=== PATIENT | female | born 1970 | race Caucasian/White ===

== ENCOUNTER 2016-11-07 10:40 | Emergency (ER) | payer OTHER ==
--- NOTE | 2016-11-07 11:04 | ER Document Report ---
ED Medical Screen (RME) - General Stated Complaint: TORSO PAIN Time seen by provider: 11:02 Mode of Arrival: Ambulatory Information source: Patient Notes: 46 yo female presets to ed for torso pain with shortness of breath for 2 days ago . TRAVEL OUTSIDE OF THE U[place] IN LAST 30 DAYS: No - HPI Onset: Other - Tuesdday Onset/Duration: Gradual Quality of pain: Achy Severity: Moderate Pain Level: 2 Associated Symptoms: Body/muscle aches, Shortness of breath Exacerbated by: Denies Relieved by: Denies Similar symptoms previously: No Recently seen / treated by doctor: No - Related Data Smoking: Non-smoker Frequency of alcohol use: Occasional Drug Abuse: None Allergies/Adverse Reactions: griseofulvin, microsize [From Grifulvin V] Allergy (Severe, Verified 03/02/12 08 :38) latex [Latex] Allergy (Verified 02/12/16 12:23) Past Medical History - Past Medical History Cardiac Medical History: Reports: Hx Hypercholesterolemia, Hx Hypertension Pulmonary Medical History: Reports: Hx Sleep Apnea - NONE SINCE 2005 Neurological Medical History: Denies: Hx Seizures Endocrine Medical History: Reports: Hx Diabetes Mellitus Type 2 Musculoskeltal Medical History: Comment Only Hx Arthritis - ? RIGHT KNEE Psychiatric Medical History: Reports: Hx Depression Past Surgical History: Reports: Hx Abdominal Surgery - bowel resection, gastric bypass, Hx Bowel Surgery, Hx Section, Hx Gastric Bypass Surgery, Hx Herniorrhaphy, Hx Pituitary Surgery. Denies: Hx Pacemaker - Immunizations Hx Diphtheria, Pertussis, Tetanus Vaccination: Yes Physical Exam - Vital signs Vitals: Temp Pulse Resp BP Pulse Ox 98.0 F 67 18 130/88 H 99 11/07/16 10:59 11/07/16 10:59 11/07/16 10:59 11/07/16 10:59 11/07/16 10:59 Course - Vital Signs Vital signs: Temp Pulse Resp BP Pulse Ox 98.0 F 67 18 130/88 H 99 11/07/16 10:59 11/07/16 10:59 11/07/16 10:59 11/07/16 10:59 11/07/16 10:59
[2016-11-07 11:34] LABS: ABSOLUTE EOSINOPHILS # (AUTO) 0.2 10^3/uL (0.0-0.6); ABSOLUTE LYMPHOCYTES (AUTO) 1.3 10^3/uL (0.5-4.7); ABSOLUTE MONOCYTES (AUTO) 0.6 10^3/uL (0.1-1.4); ABSOLUTE NEUT (AUTO) 6.1 10^3/uL (1.7-8.2); BASOPHILS % (AUTO) 0.5 % (0-2); EOSINOPHILS % (AUTO) 2.5 % (0-6); HEMATOCRIT 36.8 % (36.0-47.0); HEMOGLOBIN 12.2 g/dL (12.0-15.5); HGB HCT DIFFERENCE -0.2; LYMPHOCYTES % (AUTO) 15.6 % (13-45); MEAN CORPUSCULAR HEMOGLOBIN 25.8 pg (27.0-33.4); MEAN CORPUSCULAR HGB CONC 33.1 g/dL (32.0-36.0); MEAN CORPUSCULAR VOLUME 78 fl (80-97); RED BLOOD COUNT 4.72 10^6/uL (3.72-5.28); RED CELL DISTRIBUTION WIDTH 17.5 % (11.5-14.0); SEGMENTED NEUTROPHILS % (AUTO) 74.4 % (42-78); WHITE BLOOD COUNT 8.3 10^3/uL (4.0-10.5)
[2016-11-07 11:40] LABS: APPEARANCE,URINE SLIGHTLY-CLOUDY; BILIRUBIN,URINE NEGATIVE (NEGATIVE); GLUCOSE, URINE NEGATIVE (NEGATIVE); KETONES,URINE NEGATIVE (NEGATIVE); LEUKOCYTE ESTERASE,URINE MODERATE (NEGATIVE); NITRITE,URINE NEGATIVE (NEGATIVE); PROTEIN,URINE NEGATIVE (NEGATIVE); URINE SPECIFIC GRAVITY 1.026; UROBILINOGEN,URINE NEGATIVE mg/dL (<2.0)
[2016-11-07 11:58] LABS: ALANINE AMINOTRANSFERASE 26 U/L (9-52); ALBUMIN 4.2 g/dL (3.5-5.0); ALKALINE PHOSPHATASE 70 U/L (38-126); ANION GAP 10 (5-19); ASPARTATE AMINO TRANSFERASE 12 U/L (14-36); BILIRUBIN,TOTAL 0.6 mg/dL (0.2-1.3); BLOOD UREA NITROGEN 21 mg/dL (7-20); CALCIUM 9.1 mg/dL (8.4-10.2); CARBON DIOXIDE 29 mmol/L (22-30); CHLORIDE 99 mmol/L (98-107); GLUCOSE 110 mg/dL (75-110); LIPASE 102.6 U/L (23-300); POTASSIUM 4.1 mmol/L (3.6-5.0); SODIUM 138.3 mmol/L (137-145)
[2016-11-07] MEDS ORDERED: NORMAL SALINE 1000 ML 1,000 ML IV ONE (13:08)
--- NOTE | 2016-11-07 13:11 | ER Document Report ---
ED GI/ - General Chief Complaint: Abdominal Pain Stated Complaint: TORSO PAIN Mode of Arrival: Ambulatory Information source: Patient Notes: Patient presents complaining of upper abdominal pain that wraps around to her back for the past 3 days. Patient states pain is dull and achy in nature. Patient denies any fever, nausea, or vomiting. Patient does report occasional dizziness. Patient denies any cough or cold symptoms. Patient reports a previous history of gastric bypass. Patient states she's had similar symptoms to this in the past when she had a volvulus. TRAVEL OUTSIDE OF THE [place] IN LAST 30 DAYS: No - HPI Patient complains to provider of: Abdominal pain Onset: Other - 3 days Timing/Duration: Persistent Quality of pain: Achy, Dull Pain Level: 4 Location: Epigastric, LUQ, RUQ, Left flank, Right flank Vaginal bleeding (Compared to normal period): None Associated symptoms: Other - Occasional pressure with voiding. denies: Chest pain, Diarrhea, Dysuria, Fever, Loss of appetite, Nausea, Urinary hesitancy, Urinary frequency, Urinary retention, Vaginal discharge, Vomiting Exacerbated by: Denies Relieved by: Denies Similar symptoms previously: Yes - with previous volvulus Recently seen / treated by doctor: No - Related Data Allergies/Adverse Reactions: griseofulvin, microsize [From Grifulvin V] Allergy (Severe, Verified 11/07/16 12 :58) latex [Latex] Allergy (Verified 11/07/16 12:58) Past Medical History - General Information source: Patient Last Menstrual Period: 11/05/2016 - Social History Smoking Status: Never Smoker Frequency of alcohol use: Occasional Drug Abuse: None Occupation: call center Lives with: Family Family History: Hypertension. denies: CAD Patient has suicidal ideation: No Patient has homicidal ideation: No - Past Medical History Cardiac Medical History: Reports: Hx Hypercholesterolemia, Hx Hypertension Pulmonary Medical History: Reports: Hx Sleep Apnea - NONE SINCE 2005 Neurological Medical History: Denies: Hx Seizures Endocrine Medical History: Reports: Hx Diabetes Mellitus Type 2 - >10yr ago GI Medical History: Reports: Hx Gastroesophageal Reflux Disease Musculoskeltal Medical History: Comment Only Hx Arthritis - ? RIGHT KNEE Psychiatric Medical History: Reports: Hx Depression Past Surgical History: Reports: Hx Abdominal Surgery - bowel resection, gastric bypass, Hx Bowel Surgery, Hx Section, Hx Gastric Bypass Surgery, Hx Herniorrhaphy, Hx Pituitary Surgery. Denies: Hx Pacemaker - Immunizations Hx Diphtheria, Pertussis, Tetanus Vaccination: Yes Review of Systems - Review of Systems Constitutional: No symptoms reported. denies: Fever EENT: No symptoms reported Cardiovascular: No symptoms reported. denies: Chest pain Respiratory: No symptoms reported. denies: Cough, Short of breath Gastrointestinal: Abdominal pain. denies: Diarrhea, Nausea, Vomiting, Constipation, Poor appetite Genitourinary: Other - Pressure with voiding. denies: Dysuria, Frequency, Flank pain Female Genitourinary: No symptoms reported. denies: Vaginal discharge, Vaginal bleeding Musculoskeletal: Back pain Skin: No symptoms reported Hematologic/Lymphatic: No symptoms reported Neurological/Psychological: No symptoms reported Physical Exam - Vital signs Vitals: Temp Pulse Resp BP Pulse Ox 98.0 F 67 18 130/88 H 99 11/07/16 10:59 11/07/16 10:59 11/07/16 10:59 11/07/16 10:59 11/07/16 10:59 - General General appearance: Appears well, Alert Notes: Appears older than stated age - Respiratory Respiratory status: No respiratory distress Chest status: Nontender Breath sounds: Normal. No: Rales, Rhonchi, Stridor, Wheezing Chest palpation: Normal - Cardiovascular Rhythm: Regular Heart sounds: S1 appreciated, S2 appreciated Murmur: No - Abdominal Inspection: Obese Distension: No distension Bowel sounds: Normal Tenderness: Tender - Right upper, left upper, epigastric tenderness - Back Back: No: CVA tenderness Notes: Tenderness across bilateral thoracolumbar area - Extremities General upper extremity: Normal inspection, Normal strength General lower extremity: Normal inspection, Normal strength - Neurological Neuro grossly intact: Yes Cognition: Normal [place] Coma Scale Eye Opening: Spontaneous [place] Coma Scale Verbal: Oriented [place] Coma Scale Motor: Obeys Commands Reta Coma Scale Total: 15 - Psychological Associated symptoms: Normal affect, Normal mood - Skin Skin Temperature: Warm Skin Moisture: Dry Skin Color: Pale Course - Vital Signs Vital signs: Temp Pulse Resp BP Pulse Ox 98.0 F 67 18 130/88 H 99 11/07/16 10:59 11/07/16 10:59 11/07/16 12:10 11/07/16 10:59 11/07/16 10:59 - Laboratory Result Diagrams: 11/07/16 11:10 11/07/16 11:10 Laboratory results interpreted by me: 11/07/16 11/07/16 11/07/16 11:10 11:10 11:10 MCV 78 L MCH 25.8 L RDW 17.5 H BUN 21 H AST 12 L Urine Blood LARGE H Ur Leukocyte Esterase MODERATE H 11/07/16 13:32 MCV MCH RDW BUN AST Urine Blood Ur Leukocyte Esterase MODERATE H 11/07/16 17:22 Labs- Entire Visit 11/07/16 11/07/16 11/07/16 11:10 11:10 11:10 WBC 8.3 RBC 4.72 Hgb 12.2 Hct 36.8 MCV 78 L MCH 25.8 L MCHC 33.1 RDW 17.5 H Plt Count 207 Seg Neutrophils % 74.4 Lymphocytes % 15.6 Monocytes % 7.0 Eosinophils % 2.5 Basophils % 0.5 Absolute Neutrophils 6.1 Absolute Lymphocytes 1.3 Absolute Monocytes 0.6 Absolute Eosinophils 0.2 Absolute Basophils 0.0 Sodium 138.3 Potassium 4.1 Chloride 99 Carbon Dioxide 29 Anion Gap 10 BUN 21 H Creatinine 0.90 Est GFR ( Amer) > 60 Est GFR (Non-Af Amer) > 60 Glucose 110 Calcium 9.1 Total Bilirubin 0.6 Direct Bilirubin 0.0 AST 12 L ALT 26 Alkaline Phosphatase 70 Total Protein 7.0 Albumin 4.2 Lipase 102.6 Urine Color YELLOW Urine Appearance SLIGHTLY-CLOUDY Urine pH 5.0 Ur Specific [place] 1.026 Urine Protein NEGATIVE Urine Glucose (UA) NEGATIVE Urine Ketones NEGATIVE Urine Blood LARGE H Urine Nitrite NEGATIVE Urine Bilirubin NEGATIVE Urine Urobilinogen NEGATIVE Ur Leukocyte Esterase MODERATE H Urine WBC (Auto) 16 Urine RBC (Auto) 19 Urine Bacteria (Auto) TRACE Squamous Epi Cells Auto 2 Urine Mucus (Auto) RARE Urine Ascorbic Acid NEGATIVE 11/07/16 13:32 WBC RBC Hgb Hct MCV MCH MCHC RDW Plt Count Seg Neutrophils % Lymphocytes % Monocytes % Eosinophils % Basophils % Absolute Neutrophils Absolute Lymphocytes Absolute Monocytes Absolute Eosinophils Absolute Basophils Sodium Potassium Chloride Carbon Dioxide Anion Gap BUN Creatinine Est GFR ( Amer) Est GFR (Non-Af Amer) Glucose Calcium Total Bilirubin Direct Bilirubin AST ALT Alkaline Phosphatase Total Protein Albumin Lipase Urine Color YELLOW Urine Appearance CLEAR Urine pH 6.0 Ur Specific [place] 1.013 Urine Protein NEGATIVE Urine Glucose (UA) NEGATIVE Urine Ketones NEGATIVE Urine Blood NEGATIVE Urine Nitrite NEGATIVE Urine Bilirubin NEGATIVE Urine Urobilinogen NEGATIVE Ur Leukocyte Esterase MODERATE H Urine WBC (Auto) 13 Urine RBC (Auto) 0 Urine Bacteria (Auto) Squamous Epi Cells Auto <1 Urine Mucus (Auto) RARE Urine Ascorbic Acid NEGATIVE 11/07/16 17:34 - Diagnostic Test Radiology reviewed: Reports reviewed Discharge - Discharge Clinical Impression: Gall bladder disease UTI (urinary tract infection) Qualifiers: Urinary tract infection type: site unspecified Hematuria presence: without hematuria Qualified Code(s): N39.0 - Urinary tract infection, site not specified Abdominal pain Qualifiers: Abdominal location: upper abdomen, unspecified Qualified Code(s): R10.10 - Upper abdominal pain, unspecified Fibroid uterus Qualifiers: Uterine leiomyoma location: unspecified location Qualified Code(s): D25.9 - Leiomyoma of uterus, unspecified Condition: Stable Disposition: HOME, SELF-CARE Instructions: Abdominal Pain ([facility]), Urinary Tract Infection ([facility]), Trimethoprim -Sulfa ([facility]), Gallbladder Disease ([facility]), Oral Narcotic Medication ([facility]) Additional Instructions: Return immediately for any new or worsening symptoms Followup with your primary care provider, call tomorrow to make a followup appointment Follow up with a can marker for further evaluation of fibroid uterus Follow-up with the general surgeon regarding definitive management of gallbladder disease Prescriptions: Oxycodone HCl/Acetaminophen [Percocet 5-325 mg Tablet] 1 tab PO ASDIR PRN #15 tablet PRN Reason: Sulfamethoxazole/Trimethoprim [Bactrim Ds Tablet] 1 each PO BID #14 tablet Forms: Return to Work Referrals: [facility] [Provider Group] - Follow up as needed [facility] [Provider Group] - Follow up as needed [facility] [Provider Group] - Follow up as needed [facility] [Provider Group] - Follow up as needed
[2016-11-07 13:56] LABS: APPEARANCE,URINE CLEAR; BILIRUBIN,URINE NEGATIVE (NEGATIVE); GLUCOSE, URINE NEGATIVE (NEGATIVE); KETONES,URINE NEGATIVE (NEGATIVE); LEUKOCYTE ESTERASE,URINE MODERATE (NEGATIVE); NITRITE,URINE NEGATIVE (NEGATIVE); PROTEIN,URINE NEGATIVE (NEGATIVE); URINE SPECIFIC GRAVITY 1.013; UROBILINOGEN,URINE NEGATIVE mg/dL (<2.0)
[2016-11-07] MEDS ORDERED: MORPHINE SULFATE 10 MG/ML INJ IV ONE (15:52)
[2016-11-07 17:58] VITALS: BP 140/86
== END 2016-11-07 18:02 | disposition home or self-care (01) ==
LOC: ER 10:40
DX: K82.9 Disease of gallbladder, unspecified (principal); N39.0 Urinary tract infection, site not specified; R10.10 Upper abdominal pain, unspecified; D25.9 Leiomyoma of uterus, unspecified; R10.9 Unspecified abdominal pain; R06.02 Shortness of breath
CPT/HCPCS: 99284; 96361; 51701; 96374; 36415; 83690; 85025; 80053; 81001; 71020; 76705; 74177; J2270; J7030

== ENCOUNTER → 2016-12-02 | Outpatient (CLI) | payer OTHER | LOC: RAD 12:49 | DX: R10.10 Upper abdominal pain, unspecified (principal) | CPT/HCPCS: 78227; A9537; Q9969; J2805 ==

== ENCOUNTER 2017-05-07 09:39 | Emergency (ER) | payer SELFPAY ==
[2017-05-07] MEDS ORDERED: IBUPROFEN 600 MG TABLET PO ONE (10:36)
[2017-05-07 11:29] LABS: ABSOLUTE BASOPHILS # (AUTO) 0.1 10^3/uL (0.0-0.2); ABSOLUTE EOSINOPHILS # (AUTO) 0.4 10^3/uL (0.0-0.6); ABSOLUTE LYMPHOCYTES (AUTO) 1.7 10^3/uL (0.5-4.7); ABSOLUTE MONOCYTES (AUTO) 0.6 10^3/uL (0.1-1.4); ABSOLUTE NEUT (AUTO) 5.6 10^3/uL (1.7-8.2); BASOPHILS % (AUTO) 0.9 % (0-2); EOSINOPHILS % (AUTO) 4.4 % (0-6); HEMATOCRIT 33.3 % (36.0-47.0); HEMOGLOBIN 10.3 g/dL (12.0-15.5); HGB HCT DIFFERENCE -2.4; LYMPHOCYTES % (AUTO) 20.3 % (13-45); MEAN CORPUSCULAR HEMOGLOBIN 24.1 pg (27.0-33.4); MEAN CORPUSCULAR HGB CONC 30.9 g/dL (32.0-36.0); MEAN CORPUSCULAR VOLUME 78 fl (80-97); RED BLOOD COUNT 4.26 10^6/uL (3.72-5.28); SEGMENTED NEUTROPHILS % (AUTO) 67.4 % (42-78); WHITE BLOOD COUNT 8.2 10^3/uL (4.0-10.5)
--- NOTE | 2017-05-07 11:52 | ER Document Report ---
ED GI/ - General Chief Complaint: Vaginal Bleeding Stated Complaint: VAGINAL BLEEDING Time Seen by Provider: 05/07/17 10:35 Notes: Patient is a 46-year-old female, past medical history fibroids, heavy menstrual periods, presents with 5 days of heavy menstruation. She said that she was soaking through a pad every hour, but this has improved today. She called the nurse at the [facility] and was told to come to the emergency room. She is in the process of having a hysterectomy set up at [facility]. She denies lightheadedness, chest pain, shortness of breath, nausea, vomiting, dysuria diarrhea or constipation. TRAVEL OUTSIDE OF THE [place] IN LAST 30 DAYS: No - Related Data Allergies/Adverse Reactions: griseofulvin, microsize [From Grifulvin V] Allergy (Severe, Verified 05/07/17 09 :44) latex [Latex] Allergy (Verified 05/07/17 09:44) Past Medical History - General Information source: Patient - Social History Smoking Status: Unknown if Ever Smoked Chew tobacco use (# tins/day): No Frequency of alcohol use: Occasional Drug Abuse: None Family History: Hypertension Patient has suicidal ideation: No Patient has homicidal ideation: No - Past Medical History Cardiac Medical History: Reports: Hx Hypercholesterolemia, Hx Hypertension Pulmonary Medical History: Reports: Hx Sleep Apnea - NONE SINCE 2005 Neurological Medical History: Denies: Hx Seizures Endocrine Medical History: Reports: Hx Diabetes Mellitus Type 2 - >10yr ago Renal/ Medical History: Denies: Hx Peritoneal Dialysis GI Medical History: Reports: Hx Gastroesophageal Reflux Disease Musculoskeltal Medical History: Comment Only Hx Arthritis - ? RIGHT KNEE Psychiatric Medical History: Reports: Hx Depression Past Surgical History: Reports: Hx Abdominal Surgery - bowel resection, gastric bypass, Hx Bowel Surgery, Hx Section, Hx Gastric Bypass Surgery, Hx Herniorrhaphy, Hx Pituitary Surgery. Denies: Hx Pacemaker - Immunizations Hx Diphtheria, Pertussis, Tetanus Vaccination: Yes Review of Systems - Review of Systems Notes: REVIEW OF SYSTEMS: CONSTITUTIONAL: -fevers, -chills EENT: -eye pain, -difficulty swallowing, -nasal congestion CARDIOVASCULAR:-chest pain, -syncope. RESPIRATORY: -cough, -SOB GASTROINTESTINAL: -abdominal pain, - nausea, -vomiting, -diarrhea GENITOURINARY: -dysuria, -hematuria, +heavy vaginal bleeding MUSCULOSKELETAL: -back pain, -neck pain SKIN: -rash or skin lesions. HEMATOLOGIC: -easy bruising or bleeding. LYMPHATIC: -swollen, enlarged glands. NEUROLOGICAL: -altered mental status or loss of consciousness, -headache, - neurologic symptoms PSYCHIATRIC: -anxiety, -depression. ALL OTHER SYSTEMS REVIEWED AND NEGATIVE. Physical Exam - Vital signs Vitals: Temp Pulse Resp BP Pulse Ox 98.7 F 78 16 128/71 H 98 05/07/17 09:45 05/07/17 09:45 05/07/17 09:45 05/07/17 09:45 05/07/17 09:45 - Notes Notes: PHYSICAL EXAMINATION: GENERAL: Well-appearing, well-nourished and in no acute distress. HEAD: Atraumatic, normocephalic. EYES: Pupils equal round and reactive to light, extraocular movements intact, sclera anicteric, conjunctiva are normal. ENT: nares patent, oropharynx clear without exudates. Moist mucous membranes. NECK: Normal range of motion, supple without lymphadenopathy LUNGS: Breath sounds clear to auscultation bilaterally and equal. No wheezes rales or rhonchi. HEART: Regular rate and rhythm without murmurs ABDOMEN: Soft, nontender, normoactive bowel sounds. No guarding, no rebound. No masses appreciated. : No active bleeding. Uterine mass palpated. No laceration. EXTREMITIES: Normal range of motion, no pitting or edema. No cyanosis. NEUROLOGICAL: Cranial nerves grossly intact. Normal speech, normal gait. Normal sensory and motor exams. PSYCH: Normal mood, normal affect. SKIN: Warm, Dry, normal turgor, no rashes or lesions noted. Course - Re-evaluation Re-evalutation: Patient appears well and her vital signs are normal. Her hemoglobin is 10.2. Her vaginal reading is improving over the past day. She is in the process of having an appointment with [facility] gynecology to discuss hysterectomy due to this menorrhagia. No need for blood transfusion at this time. Instructed her to begin anti-inflammatories and iron and follow-up with gynecology. Given strict return precautions and she understands. - Vital Signs Vital signs: Temp Pulse Resp BP Pulse Ox 98.7 F 78 16 128/71 H 98 05/07/17 09:45 05/07/17 09:45 05/07/17 09:45 05/07/17 09:45 05/07/17 09:45 - Laboratory Result Diagrams: 05/07/17 11:15 Laboratory results interpreted by me: 05/07/17 11:15 Hgb 10.3 L Hct 33.3 L MCV 78 L MCH 24.1 L MCHC 30.9 L RDW 18.0 H Discharge - Discharge Clinical Impression: Menorrhagia Qualifiers: Menorrahagia type: with regular cycle Qualified Code(s): N92.0 - Excessive and frequent menstruation with regular cycle Condition: Stable Disposition: HOME, SELF-CARE Additional Instructions: VAGINAL BLEEDING: You are having an episode of abnormal bleeding. Causes of abnormal vaginal bleeding can include miscarriage or tubal , tumors such as cancer or benign fibroids, medication effects, or hormone imbalance. Testing can eliminate unsuspected , tumors, or infection as a cause. "Dysfunctional uterine bleeding" is due to hormone imbalance, and is especially common at times when the normal cycle is disturbed -- whether by recent , use of control pills or hormones, or impending menopause. If the bleeding is innocent, most commonly a short course of hormones is given to restore the uterus to normal. Sometimes, the normal menstrual cycle corrects itself naturally. Sometimes , brief hormone therapy, or even a D&C is required. Your physician will advise you. Treatment for anemia may be required if bleeding is severe. You should rest and avoid intercourse until the bleeding is controlled. Call the doctor or return for re-examination if you feel faint, have increasing pain, or have a major increase in the amount of bleeding. FIBROIDS: Fibroids are benign growths or tumors in the uterus. They can cause enlargement of the uterus, irregular bleeding, severe bleeding with periods, and abdominal pain. Anemia may result if periods are heavy. Fibroids tend to grow until menopause, then slowly shrink. If fibroids cause severe symptoms, they can be treated surgically. Call or return if vaginal bleeding or pain becomes severe. NORMAL EXAM AND WORKUP: At this time, except for vaginal bleeding, your examination and workup show no significant abnormality. No significant abnormal physical findings were noted. All laboratory, EKG, and imaging (x-ray, CT scans, ultrasound) studies that were ordered show no significant abnormality. Although your examination and all studies that were ordered showed no significant abnormal finding, there are no examinations and no studies that are 100% accurate. There is always the possibility that some abnormality could exist and not be detected with physical examination or within the limits and capabilities of laboratory and other studies. You should return or follow up as you were instructed on your visit today for further evaluation if your symptoms do not resolve. FOLLOW-UP CARE: If you have been referred to a physician for follow-up care, call the physician s office for an appointment as you were instructed or within the next two days. If you experience worsening or a significant change in your symptoms (very heavy bleeding with large clots of blood, passage of tissue, more severe abdominal / pelvic pain or cramping, feeling faint or severe weakness, fever, etc.), notify the physician immediately or return to the Emergency Department at any time for re-evaluation. OBSTETRIC-GYNECOLOGIC (OB-SE[employer]) PHYSICIANS IN [place]: [facility] [address] [place], [place] [phone] [facility] [address] [place] [address] [phone] Referrals: ABELARDO HUFF MD [ACTIVE STAFF] - Follow up as needed
[2017-05-07 12:11] VITALS: BP 108/67
== END 2017-05-07 12:05 | disposition home or self-care (01) ==
LOC: ER 09:39
DX: N92.0 Excessive and frequent menstruation with regular cycle (principal); E78.00 Pure hypercholesterolemia, unspecified; I10 Essential (primary) hypertension; Z91.040 Latex allergy status; Z98.84 Bariatric surgery status
CPT/HCPCS: 36415; 84703; 85025; 86850; 86900; 86901; 99284

== ENCOUNTER 2017-07-11 20:43 | Emergency (ER) | payer OTHER ==
--- NOTE | 2017-07-11 23:54 | ER Document Report ---
HPI - HPI Patient complains to provider of: lower back pain Pain Level: 4 Context: Patient is a 46-year-old female who comes emergency department for chief complaint of pain in her lower back, symptoms started 2 weeks ago, symptoms have persisted and worsened, now she is walking with a cane. She states she gets sharp pains radiating into the left side of her back and buttocks. She denies radiation down the leg, numbness, bowel or bladder changes, injury, or history of the same. - REPRODUCTIVE Reproductive: DENIES: : - DERM Skin Color: Normal, [place] Past Medical History - General Information source: Patient - Social History Smoking Status: Never Smoker Frequency of alcohol use: None Drug Abuse: None Lives with: Family Family History: Hypertension - Past Medical History Cardiac Medical History: Reports: Hx Hypercholesterolemia, Hx Hypertension Pulmonary Medical History: Reports: Hx Sleep Apnea - NONE SINCE 2005 Neurological Medical History: Denies: Hx Seizures Endocrine Medical History: Reports: Hx Diabetes Mellitus Type 2 - >10yr ago Renal/ Medical History: Denies: Hx Peritoneal Dialysis GI Medical History: Reports: Hx Gastroesophageal Reflux Disease Musculoskeltal Medical History: Comment Only Hx Arthritis - ? RIGHT KNEE Psychiatric Medical History: Reports: Hx Depression Past Surgical History: Reports: Hx Abdominal Surgery - bowel resection, gastric bypass, Hx Bowel Surgery, Hx Section, Hx Gastric Bypass Surgery, Hx Herniorrhaphy, Hx Pituitary Surgery. Denies: Hx Pacemaker - Immunizations Hx Diphtheria, Pertussis, Tetanus Vaccination: Yes Vertical Provider Document - INFECTION CONTROL TRAVEL OUTSIDE OF THE [place] IN LAST 30 DAYS: No - HEENT HEENT: Atraumatic, Normal ENT Exam, Normocephalic - NECK Neck: Normal Inspection - RESPIRATORY Respiratory: Breath Sounds Normal, No Respiratory Distress O2 Sat by Pulse Oximetry: 96 - CARDIOVASCULAR Cardiovascular: Regular Rate, Regular Rhythm - GI/ABDOMEN Gastrointestinal: Abdomen Soft, Abdomen Non-Tender - BACK Back: negative: Normal Inspection - pain in left lumbar musculature generally; patient has painful position changes. Negative straight leg raise, no saddle anesthesia, normal distal neurovascular exam. Normal strength of all extremities. No midline tenderness. Course - Re-evaluation Re-evalutation: Patient does have degenerative changes and loss of disc space on her x-ray. She has a lot of tenderness and difficulty getting up and moving around mainly in the left paraspinal musculature area. No concerning deficits, injuries, normal neurological exam. No concerning history reported. I discussed use of pain medication and steroids, patient declined, states she had a problem with Rebecca's in the past and cannot take steroids. She requests a strong muscle relaxer type. After discussion for a while agreed to give her a short course of Valium, discussed use of this, discussed follow-up, she states that she will be seen by primary care and she understands return precautions. - Vital Signs Vital signs: Temp Pulse Resp BP Pulse Ox 98.1 F 67 18 115/51 L 96 07/11/17 21:16 07/11/17 21:16 07/11/17 21:16 07/11/17 21:16 07/11/17 21:16 Discharge - Discharge Clinical Impression: Lower back pain Qualifiers: Chronicity: acute Back pain laterality: left Sciatica presence: without sciatica Qualified Code(s): M54.5 - Low back pain Condition: Stable Disposition: HOME, SELF-CARE Additional Instructions: Your x-ray shows degenerative changes and arthritis that are probably causing your symptoms of muscle pain, spasm, and nerve pain. Recommend applying heat to the area, continuing anti-inflammatory, avoid lifting /twisting, and take the valium as prescribed. Follow-up with primary care for additional evaluation and treatment. Return to emergency department for any concerning worsening symptoms including numbness, inability to urinate, accidentally defecating on herself, fever, or any other concerning symptoms. Prescriptions: Diazepam [Valium 5 mg Tablet] 1 - 2 tab PO TID #15 tablet
--- NOTE | 2017-07-12 01:01 | RADIOLOGY REPORT (SQ) ---
EXAM DESCRIPTION: L SPINE WHOLE COMPLETED DATE/TIME: 07/12/2017 12:43 am REASON FOR STUDY: worsening persistent lower back pain COMPARISON: CT abdomen and pelvis 11/07/2016. NUMBER OF VIEWS: Five views including obliques. TECHNIQUE: AP, lateral, oblique, and sacral radiographic images acquired of the lumbar spine. LIMITATIONS: None. FINDINGS: MINERALIZATION: Normal. SEGMENTATION: Normal. No transitional anatomy. ALIGNMENT: Normal. VERTEBRAE: Maintained height. No compression fracture. DISCS: Multilevel degenerative disc disease and osteophytosis, worse at L2-L3. POSTERIOR ELEMENTS: Pedicles and facets are intact. No pars defect. HARDWARE: None in the spine. PARASPINAL SOFT TISSUES: Normal. PELVIS: SI joints intact. IMPRESSION: No acute radiographic finding in the lumbar spine. Degenerative changes. TECHNICAL DOCUMENTATION: JOB ID: [id number] [employer]- All Rights Reserved
[2017-07-12 02:27] VITALS: BP 132/68
== END 2017-07-12 02:24 | disposition home or self-care (01) ==
LOC: ER 20:43
DX: M47.9 Spondylosis, unspecified (principal); M54.5 Low back pain; I10 Essential (primary) hypertension; Z98.84 Bariatric surgery status
CPT/HCPCS: 72110; 99283

== ENCOUNTER → 2018-02-17 | Outpatient (CLI) | payer OTHER ==
[2018-02-17 13:07] LABS: ALANINE AMINOTRANSFERASE 27 U/L (9-52); ALBUMIN 3.8 g/dL (3.5-5.0); ALKALINE PHOSPHATASE 96 U/L (38-126); ASPARTATE AMINO TRANSFERASE 14 U/L (14-36); BILIRUBIN,DIRECT 0.3 mg/dL (0.0-0.4); BILIRUBIN,TOTAL 0.4 mg/dL (0.2-1.3); CALCIUM 9.1 mg/dL (8.4-10.2); IRON 20.6 ug/dL (37-170); PHOSPHORUS 4.2 mg/dL (2.5-4.5); TOTAL PROTEIN 6.7 g/dL (6.3-8.2)
[2018-02-17 13:22] LABS: FREE T3 4.14 pg/mL (2.77-5.27); FREE T4 (FREE THYROXINE) 1.1 ng/dL (0.78-2.19)
[2018-02-17 13:41] LABS: FERRITIN 9.93 ng/mL (6.2-137.0)
== END ==
LOC: CCC 12:01
DX: I10 Essential (primary) hypertension (principal); R53.83 Other fatigue
CPT/HCPCS: 36415; 80076; 82310; 82728; 83036; 83540; 83735; 84100; 84439; 84481

== ENCOUNTER → 2018-04-06 | Outpatient (CLI) | payer OTHER ==
[2018-04-06 18:19] LABS: FERRITIN 8.19 ng/mL (6.2-137.0)
[2018-04-06 18:29] LABS: IRON(TIBC) < 10.1 ug/dL (37-170)
[2018-04-08 06:40] LABS: HEPATITIS C VIRUS AB <0.1 s/co ratio (0.0-0.9)
[2018-04-08 15:57] LABS: VARICELLA ZOSTER IGM AB <0.91 index (0.00-0.90)
== END ==
LOC: CCC 16:52
DX: R53.83 Other fatigue (principal); D64.9 Anemia, unspecified
CPT/HCPCS: 36415; 82728; 83540; 83550; 84439; 86787; 86803; 86804

== ENCOUNTER → 2018-04-17 | Outpatient (CLI) | payer OTHER | LOC: OD 08:56 | DX: L65.9 Nonscarring hair loss, unspecified (principal) | CPT/HCPCS: 36415; 84443 ==

== ENCOUNTER → 2018-09-15 | Outpatient (CLI) | payer OTHER ==
[2018-09-15 17:32] LABS: ABSOLUTE BASOPHILS # (AUTO) 0.1 10^3/uL (0.0-0.2); ABSOLUTE EOSINOPHILS # (AUTO) 0.3 10^3/uL (0.0-0.6); ABSOLUTE LYMPHOCYTES (AUTO) 1.9 10^3/uL (0.5-4.7); ABSOLUTE MONOCYTES (AUTO) 0.6 10^3/uL (0.1-1.4); ABSOLUTE NEUT (AUTO) 4.7 10^3/uL (1.7-8.2); BASOPHILS % (AUTO) 0.7 % (0-2); EOSINOPHILS % (AUTO) 4.4 % (0-6); HEMOGLOBIN 14.6 g/dL (12.0-15.5); LYMPHOCYTES % (AUTO) 25.2 % (13-45); MEAN CORPUSCULAR HEMOGLOBIN 30.9 pg (27.0-33.4); MEAN CORPUSCULAR VOLUME 91 fl (80-97); MONOCYTES % (AUTO) 7.9 % (3-13); PLATELET COUNT 202 10^3/uL (150-450); RED BLOOD COUNT 4.72 10^6/uL (3.72-5.28); RED CELL DISTRIBUTION WIDTH 17.6 % (11.5-14.0); SEGMENTED NEUTROPHILS % (AUTO) 61.8 % (42-78); TOTAL CELLS COUNTED % (AUTO) 100 %; WHITE BLOOD COUNT 7.6 10^3/uL (4.0-10.5)
[2018-09-15 17:48] LABS: IRON(TIBC) 204.6 ug/dL (37-170)
[2018-09-15 18:02] LABS: FREE T3 3.18 pg/mL (2.77-5.27); FREE T4 (FREE THYROXINE) 1.03 ng/dL (0.78-2.19)
[2018-09-15 18:16] LABS: THYROID STIMULATING HORMONE 1.12 uIU/mL (0.47-4.68)
== END ==
LOC: CCC 16:10
DX: E03.9 Hypothyroidism, unspecified (principal); D64.9 Anemia, unspecified
CPT/HCPCS: 36415; 82728; 83540; 83550; 84439; 84443; 84481; 85025

== ENCOUNTER 2019-03-05 18:26 | Emergency (ER) | payer BC, OTHER ==
[2019-03-05] MEDS ORDERED: MORPHINE SULFATE 10 MG/ML INJ IV ONE (19:57)
[2019-03-05] MEDS ORDERED: ONDANSETRON HCL INJ/PF 4 MG/2 ML SDV IV ONE (19:57)
--- NOTE | 2019-03-05 20:01 | ER Document Report ---
ED Medical Screen (RME) - General Chief Complaint: Abdominal Pain Stated Complaint: ABDOMINAL PAIN Time Seen by Provider: 03/05/19 19:49 Primary Care Provider: [facility] [Primary Care Provider] - Follow up as needed Mode of Arrival: Ambulatory Information source: Patient TRAVEL OUTSIDE OF THE [place] IN LAST 30 DAYS: No - HPI Patient complains to provider of: ABDO PAIN Notes: 03/05/19 20:00 Patient here with complaints of abdominal pain. Patient states pain started a few hours ago. Is located in the right upper mid abdomen. Pain has been constant but the intensity goes up and down. No nausea, vomiting, diarrhea. No fever. No dysuria or hematuria. Gallbladder has been removed. Hysterectomy. She has had bowel resection in the past. She has had bowel obstruction in the past. Exam Patient appears to be very uncomfortable, standing in triage room. Lungs clear and equal throughout. Heart sounds normal. Tenderness to palpation of the right upper and mid abdomen on limited triage abdominal exam. Plan CBC, CMP, lipase, urine, CT abdomen pelvis with IV contrast, saline lock, morphine, Zofran. An initial examination was made on the patient as part of the triage process, and it was determined a more comprehensive evaluation was necessary. Initial labs were ordered and patient was transferred to another provider in the ED who assumed care and finished evaluation and plan. - Related Data Allergies/Adverse Reactions: griseofulvin, microsize [From Grifulvin V] Allergy (Severe, Verified 02/11/18 11:42) latex [Latex] Allergy (Verified 02/11/18 11:42) Past Medical History - Social History Frequency of alcohol use: Social Drug Abuse: None - Past Medical History Cardiac Medical History: Reports: Hx Hypercholesterolemia, Hx Hypertension Pulmonary Medical History: Reports: Hx Sleep Apnea - NONE SINCE 2005 Neurological Medical History: Denies: Hx Seizures Endocrine Medical History: Reports: Hx Diabetes Mellitus Type 2 - >10yr ago Renal/ Medical History: Denies: Hx Peritoneal Dialysis GI Medical History: Reports: Hx Gastroesophageal Reflux Disease Musculoskeltal Medical History: Reports Hx Arthritis - ? RIGHT KNEE Psychiatric Medical History: Reports: Hx Depression Past Surgical History: Reports: Hx Abdominal Surgery - bowel resection, gastric bypass/hernia repair, Hx Bowel Surgery, Hx Section, Hx Cholecystectomy, Hx Gastric Bypass Surgery, Hx Herniorrhaphy, Hx Hysterectomy, Hx Orthopedic Surgery - right knee replacement, Hx Pituitary Surgery. Denies: Hx Pacemaker - Immunizations Hx Diphtheria, Pertussis, Tetanus Vaccination: Yes Physical Exam - Vital signs Vitals: Temp Pulse Resp BP Pulse Ox 98.1 F 93 24 H 139/73 H 96 03/05/19 18:37 03/05/19 18:37 03/05/19 18:37 03/05/19 18:37 03/05/19 18:37 Course - Vital Signs Vital signs: Temp Pulse Resp BP Pulse Ox 98.1 F 93 24 H 139/73 H 96 03/05/19 18:37 03/05/19 18:37 03/05/19 18:37 03/05/19 18:37 03/05/19 18:37 Doctor's Discharge - Discharge Referrals: [facility] [Primary Care Provider] - Follow up as needed
[2019-03-05 21:08] LABS: ABSOLUTE BASOPHILS # (AUTO) 0.1 10^3/uL (0.0-0.2); ABSOLUTE EOSINOPHILS # (AUTO) 0.3 10^3/uL (0.0-0.6); ABSOLUTE LYMPHOCYTES (AUTO) 2.2 10^3/uL (0.5-4.7); ABSOLUTE MONOCYTES (AUTO) 0.6 10^3/uL (0.1-1.4); ABSOLUTE NEUT (AUTO) 6.2 10^3/uL (1.7-8.2); BASOPHILS % (AUTO) 0.7 % (0-2); EOSINOPHILS % (AUTO) 2.9 % (0-6); HEMATOCRIT 44.2 % (36.0-47.0); HEMOGLOBIN 14.9 g/dL (12.0-15.5); LYMPHOCYTES % (AUTO) 23.8 % (13-45); MEAN CORPUSCULAR HEMOGLOBIN 31.5 pg (27.0-33.4); MEAN CORPUSCULAR HGB CONC 33.8 g/dL (32.0-36.0); MEAN CORPUSCULAR VOLUME 93 fl (80-97); MONOCYTES % (AUTO) 6.3 % (3-13); PLATELET COUNT 254 10^3/uL (150-450); RED BLOOD COUNT 4.74 10^6/uL (3.72-5.28); RED CELL DISTRIBUTION WIDTH 15.1 % (11.5-14.0); SEGMENTED NEUTROPHILS % (AUTO) 66.3 % (42-78); TOTAL CELLS COUNTED % (AUTO) 100 %; WHITE BLOOD COUNT 9.3 10^3/uL (4.0-10.5)
[2019-03-05 21:26] LABS: ALANINE AMINOTRANSFERASE 32 U/L (9-52); ALBUMIN 4.9 g/dL (3.5-5.0); ALKALINE PHOSPHATASE 124 U/L (38-126); ANION GAP 15 (5-19); ASPARTATE AMINO TRANSFERASE 17 U/L (14-36); BILIRUBIN,DIRECT 0.3 mg/dL (0.0-0.4); BLOOD UREA NITROGEN 35 mg/dL (7-20); CALCIUM 10.4 mg/dL (8.4-10.2); CARBON DIOXIDE 22 mmol/L (22-30); CHLORIDE 102 mmol/L (98-107); GLUCOSE 120 mg/dL (75-110); LIPASE 207.9 U/L (23-300); POTASSIUM 4.8 mmol/L (3.6-5.0); SODIUM 138.9 mmol/L (137-145); TOTAL PROTEIN 8.2 g/dL (6.3-8.2)
--- NOTE | 2019-03-05 22:27 | RADIOLOGY REPORT (SQ) ---
EXAM DESCRIPTION: CT ABDOMEN PELVIS WITH IV CONTRAST COMPLETED DATE/TME: 03/05/2019 19:58 CLINICAL HISTORY: RIGHT ABDO PAIN, HX OF BOWEL OBSTRUCTION COMPARISON: None Available TECHNIQUE: Contiguous axial images of the abdomen and pelvis were obtained followed by reconstruction images. This exam was performed according to our departmental dose-optimization program, which includes automated exposure control, adjustment of the mA and/or kV according to patient size and/or use of iterative reconstruction technique. FINDINGS: Abnormal attenuation and enlargement of the anterior right abdominal rectus muscle compatible with a focal hemorrhage, measuring approximately 9.2 x 4.9 cm in size. Linear opacities within the lungs may represent scar versus subsegmental atelectasis. Patient is status post gastric bypass surgery. There is atherosclerosis. Calcifications within the pelvis compatible with phleboliths. Patient is status post hysterectomy. The liver, spleen, pancreas and kidneys are within normal limits. There is no hydronephrosis or renal stones. Adrenal glands are within normal limits. Aorta is of normal caliber and tapering. There is no free fluid in the abdomen or pelvis. There is no bowel obstruction. There is no stranding of the mesenteric fat to suggest an inflammatory response. The appendix is within normal limits. There is no pericecal inflammation. IMPRESSION: Findings compatible with a right anterior abdominal wall rectus muscle hematoma. No acute intra-abdominal abnormality
[2019-03-06 00:15] LABS: APPEARANCE,URINE CLEAR; BILIRUBIN,URINE NEGATIVE (NEGATIVE); COLOR,URINE YELLOW; GLUCOSE, URINE NEGATIVE (NEGATIVE); KETONES,URINE 20 mg/dL (NEGATIVE); LEUKOCYTE ESTERASE,URINE NEGATIVE (NEGATIVE); NITRITE,URINE NEGATIVE (NEGATIVE); PROTEIN,URINE 30 mg/dL (NEGATIVE); URINE SPECIFIC GRAVITY 1.045; UROBILINOGEN,URINE NEGATIVE mg/dL (<2.0)
[2019-03-06] MEDS ORDERED: METHOCARBAMOL 750 MG TABLET PO ONE (00:35)
[2019-03-06] MEDS ORDERED: LIDOCAINE 5% (700 MG) TRANSDERMAL ADH..PATCH TP ONE (00:35)
[2019-03-06] MEDS ORDERED: HYDROCODONE/ACETAMINOPHEN 5-325 MG (6 TAB/ER DISP) PO PRN (00:42)
--- NOTE | 2019-03-06 00:42 | ER Document Report ---
ED General - General Chief Complaint: Abdominal Pain Stated Complaint: ABDOMINAL PAIN Time Seen by Provider: 03/05/19 19:49 Primary Care Provider: [facility] [NO LOCAL MD] - Follow up as needed Mode of Arrival: Ambulatory Notes: 48-year-old female who works in a [employer] center presents emergency department complaining of sudden onset of sharp right upper quadrant muscle spasms onset earlier today. States they radiate to her right upper quadrant, her right flank into her breast and a bank progressively worsening throughout the day although they are slightly improved now. Patient states she noticed a hot focal swelling in her abdomen that has now resolved. Pain was initially 5 out of 5 is now down to a 4 out of 5. States they worsen with sitting. Denies any injury, denies any strain, denies any injections into her abdomen and denies any blood thinners. Also denies vomiting or diarrhea. TRAVEL OUTSIDE OF THE [place] IN LAST 30 DAYS: No - Related Data Allergies/Adverse Reactions: griseofulvin, microsize [From Grifulvin V] Allergy (Severe, Verified 02/11/18 11:42) latex [Latex] Allergy (Verified 02/11/18 11:42) Past Medical History - General Information source: Patient - Social History Smoking Status: Never Smoker Frequency of alcohol use: Social Drug Abuse: None Family History: Hypertension Patient has suicidal ideation: No Patient has homicidal ideation: No - Past Medical History Cardiac Medical History: Reports: Hx Hypercholesterolemia, Hx Hypertension Pulmonary Medical History: Reports: Hx Sleep Apnea - NONE SINCE 2005 Neurological Medical History: Denies: Hx Seizures Endocrine Medical History: Reports: Hx Diabetes Mellitus Type 2 - >10yr ago Renal/ Medical History: Denies: Hx Peritoneal Dialysis GI Medical History: Reports: Hx Gastroesophageal Reflux Disease Musculoskeletal Medical History: Reports Hx Arthritis - ? RIGHT KNEE Psychiatric Medical History: Reports: Hx Depression Past Surgical History: Reports: Hx Abdominal Surgery - bowel resection, gastric bypass/hernia repair, Hx Bowel Surgery, Hx Section, Hx Cholecystectomy, Hx Gastric Bypass Surgery, Hx Herniorrhaphy, Hx Hysterectomy, Hx Orthopedic Surgery - right knee replacement, Hx Pituitary Surgery. Denies: Hx Pacemaker - Immunizations Hx Diphtheria, Pertussis, Tetanus Vaccination: Yes Review of Systems - Review of Systems Constitutional: No symptoms reported Gastrointestinal: See HPI -: Yes All other systems reviewed and negative Physical Exam - Vital signs Vitals: Temp Pulse Resp BP Pulse Ox 98.1 F 93 24 H 139/73 H 96 03/05/19 18:37 03/05/19 18:37 03/05/19 18:37 03/05/19 18:37 03/05/19 18:37 Interpretation: Tachypneic - Notes Notes: GENERAL: Alert, interacts well. No acute distress. HEAD: Normocephalic, atraumatic EYES: Pupils equal, round and reactive to light, extraocular movements intact. ENT: Oral mucosa moist, tongue midline. NECK: Full range of motion, supple, trachea midline. LUNGS: Clear to auscultation bilaterally, no wheezes, rales or rhonchi, no respiratory distress. HEART: Regular rate and rhythm, no murmurs, gallops, rubs. ABDOMEN: Soft, right upper quadrant tenderness to palpation just below the right ribs, no masses noted however it is slightly warmer than the rest of the abdo men, no focal swelling is noted, no erythema, nondistended, bowel sounds present in all 4 quadrants. EXTREMITIES: Moves all 4 extremities spontaneously, no edema, radial and dorsalis pedis pulses 2/4 bilaterally. No cyanosis. Right foot slightly externally rotated, it appears chronic and patient confirms that it is chronic. NEUROLOGICAL: Alert and oriented x3, normal speech. PSYCH: Normal mood, normal affect. SKIN: Warm, Dry, normal turgor, no rashes or lesions noted. Course - Re-evaluation Re-evalutation: 03/06/19 00:37 CBC unremarkable, CMP shows somewhat elevated BUN, normal creatinine, calcium elevated 10.4 otherwise unremarkable, lipase normal, CT scan of abdomen and pelvis reveals a right sided abdominal rectus hematoma consistent with a focal hemorrhage, 9.2 x 4.9 cm in size otherwise unremarkable. Physical examination is consistent with this as well - Vital Signs Vital signs: Temp Pulse Resp BP Pulse Ox 98.1 F 93 24 H 139/73 H 96 03/05/19 18:37 03/05/19 18:37 03/05/19 18:37 03/05/19 18:37 03/05/19 18:37 - Laboratory Result Diagrams: 03/05/19 20:45 03/05/19 20:45 Laboratory results interpreted by me: 03/05/19 03/05/19 03/05/19 20:45 20:45 23:51 RDW 15.1 H BUN 35 H Est GFR ( Amer) 58 L Est GFR (Non-Af Amer) 48 L Glucose 120 H Calcium 10.4 H Urine Protein 30 H Urine Ketones 20 H Discharge - Discharge Clinical Impression: Nontraumatic rectus hematoma Condition: Stable Disposition: HOME, SELF-CARE Additional Instructions: You have a rectus hematoma, this is bleeding into the muscles on the outside of your abdomen. You do not have bleeding inside of your abdomen, you do not have bleeding into your liver. We do not know exactly what caused this however you should avoid hitting this on anything or do you should also avoid blood thinners such as aspirin, ibuprofen or fish oil. If your pain worsens significantly, you become woozy or dizzy or you have any new or concerning symptoms please return to the emergency department. You may take acetaminophen 1000 mg every 6 hours as needed for pain, place a Lidoderm patch on the area on for 12 hours and off for 12 hours. You should use an ice pack for the first 48 hours and then after that you may use heating packs to help resolve this more quickly. Please be rechecked by your doctor within the next week. Prescriptions: Lidocaine [Lidoderm 5% (700 mg) Transdermal Patch] 1 patch TP DAILY #10 adh..patch Methocarbamol [Robaxin 750 mg Tablet] 750 mg PO ASDIR PRN #40 tablet PRN Reason: Forms: Return to Work [facility] [NO LOCAL MD] - Follow up as needed
[2019-03-06 01:17] VITALS: BP 111/51
== END 2019-03-06 01:17 | disposition home or self-care (01) ==
LOC: ER 18:26
DX: M79.81 Nontraumatic hematoma of soft tissue (principal); R10.11 Right upper quadrant pain; E78.00 Pure hypercholesterolemia, unspecified; I10 Essential (primary) hypertension; E11.9 Type 2 diabetes mellitus without complications; Z91.040 Latex allergy status; Z90.710 Acquired absence of both cervix and uterus; Z98.84 Bariatric surgery status; Z90.49 Acquired absence of other specified parts of digestive tract
CPT/HCPCS: 99284; 96374; 96375; 36415; 83690; 85025; 80053; 81001; 74177; J3490; J2270; J2405

== ENCOUNTER 2019-05-13 07:13 | Day surgery (SDC) | payer BC ==
[~2019-05-13 07:13] MED LIST: KETOROLAC TROMETHAMINE 0.45% 4 DROP/0.4 ML DROPERETTE OS PRN
[2019-05-13] MEDS ORDERED: FENTANYL CITRATE INJ/PF 100 MCG/2 ML AMPUL ONE (07:19)
[2019-05-13] MEDS ORDERED: MIDAZOLAM 2 MG/2 ML INJ ONE (07:19)
[2019-05-13] MEDS: CYCLOPENTOLATE 0.2%/PHENYLEPHRINE 1% OPH SOLN 2 ML OS PRN ×3 (07:50→08:09)
[2019-05-13] MEDS: BESIFLOXACIN HCL 0.6% OPH SUSP 5 ML BOTTLE OS PRN ×4 (07:50→08:38)
[2019-05-13] MEDS: TETRACAINE HCL 0.5% OPH SOLN 4 ML OS PRN ×4 (07:50→08:10)
[2019-05-13] MEDS: TROPICAMIDE 1% OPH SOLN 3 ML OS PRN ×3 (07:50→08:09)
[2019-05-13] MEDS: CHONDR SU A NA/HYALUR INTRAOC KIT (SURGICARE) ONE ×2 (08:24)
[2019-05-13] MEDS: EPINEPHRINE INJ/PF 1 MG/1 ML AMPULE ONE ×2 (08:24)
[2019-05-13] MEDS: LIDOCAINE 1%/PHENYLEPHRINE 1.5% 1 ML VIAL ONE ×2 (08:24)
[2019-05-13] MEDS: DORZOLAMIDE HCL 2%/TIMOLOL MALEAT 0.5% OPH SOLN 10 ML OS PRN ×2 (08:38)
--- NOTE | 2019-05-14 11:26 | [facility] OPERATIVE REPORT E ---
[facility] Operative Report NAME: JEWELS HOLCOMB AGE: 48Y DATE OF SURGERY: 05/13/2019 ROOM: PREOPERATIVE DIAGNOSIS: CATARACT, LEFT EYE. POSTOPERATIVE DIAGNOSIS: CATARACT, LEFT EYE. OPERATION: Cataract extraction with toric IOL of the left eye. SURGEON: FITZ REYNA M.D. ANESTHESIA: Topical. PROCEDURE: After obtaining appropriate consent, the patient's left eye was prepped and draped in sterile fashion as well as the surgeon in a sterile manner and cataract surgery was started. First a paracentesis blade was used to make a side-port incision. Viscoelastic was used to inflate the anterior chamber. Next a 2.4 mm incision was made with a 2.4 mm blade, clear corneal temporally. A continuous capsulorrhexis was made using a cystotome and Utrata forceps. Following this hydrodissection was carried out to make the lens fully loose and mobile and it was rotated 90 degrees. Following this, a rojkwr-agr-[id number] technique was used to phacoemulsify the lens with a CDE of 3.53. The remaining cortex was removed with irrigation/aspiration. Provisc was instilled into the capsular bag to inflate the bag. A SN6AT4, 9.5 diopter lens was placed, and that was rotated to 35 degrees. The remaining viscoelastic material was removed with irrigation/aspiration. Following this, the incision was found to be watertight. Besivance was instilled into the eye and a protective shield was placed over the eye. The patient returned to the postoperative recovery in stable condition. DICTATING PHYSICIAN: FITZ REYNA M.D. [id number] PHY#: [id number] ID: [id number] JOB#: [id number] ACCT: [id number] cc:FITZ REYNA M.D. >
--- NOTE | 2019-05-14 11:31 | [facility] DISCHARGE SUMMARY E ---
[facility] Discharge Summary NAME: JEWELS HOLCOMB AGE: 48Y ADMITTED: 05/13/2019 DISCHARGED: 05/13/2019 DIAGNOSIS: Cataract, left eye. SUMMARY: This is a 48-year-old female who underwent cataract extraction with insertion of a toric IOL of the left eye. She underwent surgery because she was having difficulty driving at night secondary to glare from headlights. DISCHARGE INSTRUCTIONS: She should be on a regular diet, no bending at her waist, and no heavy lifting. She should use her moxifloxacin, Prolensa, and Pred Forte at 3 p.m. and 8 p.m. and sleep with a rigid shield. I will see her for a 1-day postoperative tomorrow. DICTATING PHYSICIAN: FITZ REYNA M.D. [id number] PHY#: [id number] ID: [id number] JOB#: [id number] ACCT: [id number] cc:FITZ REYNA M.D. >
== END 2019-05-13 09:25 | disposition home or self-care (01) ==
LOC: SC 07:13
PROVIDERS: ATTEND Internal Medicine
DX: H25.13 Age-related nuclear cataract, bilateral (principal); H43.813 Vitreous degeneration, bilateral; E11.9 Type 2 diabetes mellitus without complications; I10 Essential (primary) hypertension; D64.9 Anemia, unspecified; E66.9 Obesity, unspecified; Z68.37 Body mass index [BMI] 37.0-37.9, adult; Z91.040 Latex allergy status
CPT/HCPCS: 66984; J2250; J3490 ×2; J0171; J3010; J2370; 142; V2787